=== PATIENT | male | born 1955 | race African-American/Black ===

== ENCOUNTER 2018-08-14 09:47 | Emergency (ER) | payer OTHER ==
[~2018-08-14] VITALS: Ht 175.3 cm; Wt 89.8 kg
[~2018-08-14 09:47] MED LIST: AMLODIPINE BESY10 MG; ASPIRIN EC81 M1 PO; IBUPROFEN 600600 M1 PO; LIPITOR 10 MG10 M1 PO; LISINOPRIL5 MG PO; NORCO 5-325 TA1 EACH PO; NORFLEX100 MG PO
[2018-08-14] MEDS ORDERED: DOXYCYCLINE HY100 M3 PO (09:54)
[2018-08-14] MEDS ORDERED: NORCO 5-325 TA1 EACH PO (10:55)
[2018-08-14 11:03] VITALS: BP 121/85
== END 2018-08-14 11:08 | disposition home or self-care (01) ==
LOC: ER 09:47
DX: S93.402A Sprain of unspecified ligament of left ankle, initial encounter (principal); S76.011A Strain of muscle, fascia and tendon of right hip, initial encounter; M79.672 Pain in left foot; I10 Essential (primary) hypertension; E78.00 Pure hypercholesterolemia, unspecified; W01.0XXA Fall on same level from slipping, tripping and stumbling without subsequent striking against object, initial encounter; Y93.89 Activity, other specified; Y92.89 Other specified places as the place of occurrence of the external cause; Y99.8 Other external cause status